=== PATIENT | female | born 1965 | race American Indian/Alaskan Native ===

== ENCOUNTER 2017-07-01 13:50 | Emergency (ER) | payer OTHER, MEDICARE ==
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
[2017-07-01] MEDS ORDERED: FLEXERIL PO ONE (16:12)
[2017-07-01] MEDS ORDERED: NORCO 5/325 PO ONE (16:12)
[2017-07-01] MEDS ORDERED: BENADRYL ONE (16:39)
[2017-07-01 16:48] LABS: Basophils # (Auto) 0.1 K/mm3 (0.0-0.1); Basophils % (Auto) 0.8 % (0.0-1.8); Eosinophils # (Auto) 0.1 K/mm3 (0.0-0.4); Eosinophils % (Auto) 1.2 % (0.0-4.3); Hematocrit 36.7 % (30.3-42.9); Hemoglobin 11.6 gm/dl (10.1-14.3); Lymphocytes # (Auto) 0.9 K/mm3 (1.2-5.4); Lymphocytes % (Auto) 11.3 % (13.4-35.0); Mean Corpuscular HGB Conc 32 % (30-34); Mean Corpuscular Hemoglobin 27 pg (28-32); Mean Corpuscular Volume 86 fl (79-97); Monocytes # (Auto) 0.4 K/mm3 (0.0-0.8); Platelet Count 297 K/mm3 (140-440); Red Blood Count 4.29 M/mm3 (3.65-5.03); Red Cell Distribution Width 15.3 % (13.2-15.2)
[2017-07-01 16:59] LABS: BUN/Creatinine Ratio 11; Blood Urea Nitrogen 10 mg/dL (7-17); Calcium 9.2 mg/dL (8.4-10.2); Hemolysis Index 19; INR 0.89 (0.87-1.13)
[2017-07-01 17:00] LABS: Partial Thromboplastin Time 28.1 Sec. (24.2-36.6)
[2017-07-01 17:05] LABS: Alanine Aminotransferase 11 units/L (7-56); Albumin 4.6 g/dL (3.9-5)
[2017-07-01 17:08] LABS: Bilirubin,Direct < 0.2 mg/dL (0-0.2)
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
[2017-07-01] MEDS ORDERED: APRESOLINE ONE (18:46)
[2017-07-01] MEDS ORDERED: APRESOLINE IV ONE (18:48)
[2017-07-01] MEDS: APRESOLINE PO ONE ×2 (18:50→18:51)
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
[2017-07-01] MEDS ORDERED: MOTRIN PO ONE (19:49)
[2017-07-01 20:12] VITALS: BP 174/85
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
== END 2017-07-01 21:57 | disposition home or self-care (01) ==
LOC: ED 13:50
DX: S20.212A Contusion of left front wall of thorax, initial encounter (principal); S20.211A Contusion of right front wall of thorax, initial encounter; M54.2 Cervicalgia; M54.6 Pain in thoracic spine; M79.631 Pain in right forearm; R55 Syncope and collapse; R10.9 Unspecified abdominal pain; M62.838 Other muscle spasm; Z98.51 Tubal ligation status
CPT/HCPCS: 36415; 70450; 71260; 72125; 73090; 74177; 80048; 80074; 85025; 85610; 85730; 96374; 99285; J0360; Q9967; J1200